=== PATIENT | male | born 1960 | race Caucasian/White ===

== ENCOUNTER 2024-10-15 08:39 | Emergency (ER) | payer BC, OTHER ==
[~2024-10-15] VITALS: Ht 170.2 cm; Wt 81.6 kg
[2024-10-15 09:26] LABS: BASOPHILS # (AUTO) 0.1 K/UL (0.0-0.2); BASOPHILS % (AUTO) 0.6 % (0.0-2.0); EOSINOPHILS # (AUTO) 0.2 K/uL (0.0-0.7); EOSINOPHILS % (AUTO) 1.9 % (0.0-7.0); HEMATOCRIT 28.6 % (36.7-47.1); HEMOGLOBIN 9.7 g/dL (12.5-16.3); LYMPHOCYTES # (AUTO) 2.5 K/uL (0.8-4.8); LYMPHOCYTES % (AUTO) 27.3 % (20.5-51.5); MEAN CORPUSCULAR HEMOGLOBIN 32.1 uug (23.8-33.4); MEAN CORPUSCULAR HGB CONC 34 g/dL (32.5-36.3); MEAN CORPUSCULAR VOLUME 94.6 fL (73.0-96.2); MONOCYTES # (AUTO) 0.6 K/uL (0.1-1.30); NEUTROPHILS # (AUTO) 5.7 K/uL (1.8-8.9); NEUTROPHILS % (AUTO) 63.2 % (38.5-71.5); PLATELET COUNT (AUTO) 214 K/uL (152-348); RED BLOOD CELL COUNT(AUTO) 3.02 MIL/uL (4.06-5.63); RED CELL DISTRIBUTION WIDTH 15.5 % (12.1-16.2)
[2024-10-15 09:32] LABS: DIFFERENTIAL COMMENT 1
[2024-10-15 09:36] LABS: CARBON DIOXIDE 26 mmol/L (21-32); CHLORIDE 103 mmol/L (98-107); GLUCOSE 126 mg/dL (74-106); POTASSIUM 4.8 mmol/L (3.5-5.1); SODIUM SERUM 142 mmol/L (136-145); UREA NITROGEN, BLOOD 51 mg/dL (7-18)
[2024-10-15 09:44] LABS: CALCIUM 13.3 mg/dL (8.5-10.1); CREATININE 8.7 mg/dL (0.6-1.3)
[2024-10-15 09:45] LABS: ALANINE AMINOTRANSFERASE 25 U/L (16-63); ALBUMIN 3.1 g/dL (3.4-5.0); ALKALINE PHOSPHATASE 85 U/L (50-136); ASPARTATE AMINOTRANSFERASE 26 U/L (15-37); BILIRUBIN,DIRECT 0.1 mg/dL (0.0-0.2); BILIRUBIN,TOTAL 0.4 mg/dL (0.2-1.0)
[2024-10-15 09:49] LABS: THYROID STIMULATING HORMONE 12.785 mIU/mL (0.358-3.740)
[2024-10-15] MEDS: IV NORMAL SALINE 1000 ML BAG IV ONE (10:44)
[2024-10-15 10:46] LABS: *BILIRUBIN,URIN NEGATIVE (NEGATIVE); *BLOOD, URINE 1+ (NEGATIVE); *CLARITY,URINE CLEAR (CLEAR); *COLOR,URINE YELLOW (YELLOW); *KETONES,URINE NEGATIVE (NEGATIVE); *PROTEIN,URINE 2+ (NEGATIVE); *UROBILINOGEN,URINE 0.2 E.U./dl (NORMAL); LEUKOCYTE ESTERASE ,URINE NEGATIVE (NEGATIVE); NITRITE, URINE NEGATIVE (NEGATIVE); UGLUCOSE NEGATIVE (NEGATIVE)
[2024-10-15 11:00] LABS: BACTERIA,URINE FEW /HPF (NONE SEEN); WBC,URINE 0-3 /HPF (0-3)
[2024-10-15] MEDS: NICARDIPINE-NS IVPB 200 ML IV PRN (11:55)
[2024-10-15] MEDS: IV NS 1000 ML 1,000 ML IV ONE (13:31)
[2024-10-15 14:19] VITALS: BP 157/84; O2SAT 98
== END 2024-10-15 13:50 | disposition left against medical advice (07) ==
LOC: ER 08:39
DX: I61.9 Nontraumatic intracerebral hemorrhage, unspecified (principal); I12.9 Hypertensive chronic kidney disease with stage 1 through stage 4 chronic kidney disease, or unspecified chronic kidney disease; E11.22 Type 2 diabetes mellitus with diabetic chronic kidney disease; N18.9 Chronic kidney disease, unspecified; I16.0 Hypertensive urgency; D64.9 Anemia, unspecified; E83.52 Hypercalcemia; M19.90 Unspecified osteoarthritis, unspecified site; M54.50 Low back pain, unspecified; R41.82 Altered mental status, unspecified
CPT/HCPCS: 36415; 70450; 71045; 76770; 83605; 84443; 84484; 85025; 85730; A4606; A4663; C1758